=== PATIENT | female | born 1980 | race Two or more races ===

== ENCOUNTER 2020-05-23 12:43 | Outpatient (RCR) | payer OTHER, SELFPAY ==
--- NOTE | 2020-05-24 13:23 | MHC.PT.EP ---
[facility] [place] Office [place] [facility] [place] [facility] [address] Johanna Mendez [address] [phone] F: [phone] F: [phone] F: [phone] F: [phone] Physical Therapy Plan of Care Date of Evaluation: 05/23/20 Date of Surgery: n/a Diagnosis: thoracic pain Assessment: Patient is a 40 year old R handed female who presents with s/s consistent with thoracic pain. She works with daily job demands including caring for her children, including 8 year old and 7 month old. Patient past medical history is non-contributory. Current impairments include pain, ROM, strength, tissue tension, posture, activity tolerance and functional mobility. Functional limitations include decreased ability to sit, lift, carry, push, pull, sleep, and perform weight bearing activities.. Patient is motivated with good rehab potential. Skilled PT will address impairments and functional limitations in order to achieve goals. Frequency and Duration: The patient will be seen 2x/week for 5 weeks Short Term Goals: I with HEP - 2 weeks TTP absent - 3 weeks MT/LT 4/5 - 3 weeks [employer] Goals: improved body mechanics related to care of child per patient report - 4 weeks Oswestry 15% or better - 5 weeks max pain with ADLs 2/10 - 5 weeks Treatment Plan: Modalities to reduce pain, spasms and effusion. Manual therapy to restore motion and function. Therapeutic exercise to improve strength and flexibility. Neuromuscular re-education for posture and balance. Therapeutic activities to return to functional activities of daily living. Electronically signed by: Osman Lauren, PT Please sign and return to therapist. Thank you for your referral.
--- NOTE | 2020-07-11 13:20 | MHC.PT.DC ---
[facility] [place] [facility] [place] [facility] [place] [facility] [address] Johanna Mendez 140 [facility] [phone] F: [phone] F: [phone] F: [phone] F: [phone] Physical Therapy Discharge Report Diagnosis: thoracic pain Date of Surgery: n/a Date of Evaluation: 05/23/20 Date of Discharge: Treatments to Date: 1 Cancellations to Date: 0 No Shows to Date: 0 Discharge Status: Patient Elected to Stop Discharge Summary: did not attend follow up appts. Electronically signed by: Osman Lauren PT Please sign and return to therapist. Thank you for your referral.
== END 2020-07-11 13:21 | disposition home or self-care (01) ==
LOC: HO.PTCHIC 12:43
PROVIDERS: PCP Internal Medicine; Visit Provider Internal Medicine
DX: M54.6 Pain in thoracic spine (principal)
CPT/HCPCS: 97110; 97161

== ENCOUNTER → 2020-06-03 08:25 | Outpatient (BNVA) | payer OTHER, SELFPAY | PROVIDERS: PCP Internal Medicine; Visit Provider Physician Assistant ==